=== PATIENT | male | born 1940 | race Caucasian/White ===

== ENCOUNTER 2018-02-28 10:22 | Emergency (ER) | payer MEDICARE, OTHER ==
[2018-02-28] MEDS ORDERED: Sodium Chloride 0.9% 1,000 ML IV SCH (12:30)
[2018-02-28 12:57] VITALS: BP 116/56
--- NOTE | 2018-02-28 13:15 | CT ---
INDICATION: Syncope. CT HEAD WITHOUT CONTRAST: Serial contiguous 2.5 and 5-mm sections were obtained through the brain without contrast 02/28/2018, and compared with 2009. Total Exam DLP = 950.31 mGy-cm. No shift of midline structures was identified. The ventricles are more prominent than on the previous study, compatible with central atrophy. Cortical sulci are more prominent, compatible with progressive cortical atrophy of mild degree. Very minimal low-density abnormality is noted in the white matter suggesting minimal microvascular disease, slightly more prominent than on the previous study or stable. Calcifications are noted in the vertebral and internal carotid arteries. A small retention cyst is noted in the right maxillary antrum. Thickening of the lining of the base of the right frontal air cell is again noted, but is not seen at the left frontal air cell. Mastoid air cells were well aerated. No cranial abnormality was seen. IMPRESSION: 1. No acute intracranial abnormality. 2. Progressive atrophy, mostly central. 3. Cerebrovascular disease with arterial calcifications. 4. Minimal findings in the paranasal sinuses. Report was called to Dr. Briscoe at 1133 hours, 02/28/2018. [facility]Jose
--- NOTE | 2018-03-01 11:24 | CR ---
INDICATION: Syncope for 2 minutes. CHEST: AP upright portable view of the chest was obtained 02/28/2018 and compared with 11/01/2010 and 01/29/2009. The heart appears somewhat enlarged. The aorta is tortuous with calcification in the arch. Overlying EKG leads are noted. An active infiltrate or effusion was not identified. Prominence at the breast tissue suggests gynecomastia - correlate clinically. IMPRESSION: 1. No acute process. 2. ASHD. 3. Probable gynecomastia. MTDD
--- NOTE | 2018-03-01 15:29 | ER ---
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 The patient presents today because he had symptoms onset of gassiness, felt like he was going to pass out. Hemoccult is negative. PAST SURGERY HISTORY: Appendectomy in 2014, hernia repair, TURP, ablation in 2012, antecedent 3 defibrillations 15 years ago, had numbness of his hand, and he was told he had TIA, and wears a hearing aid. REVIEW OF SYSTEMS: HEENT: Negative. Decreased hearing. Wears glasses. CARDIORESPIRATORY: As noted above. He has atrial fibrillation, has not experienced episodes of tachycardia. He has had previous ablation. GI: No history of bleeding (apixaban can cause increased frequency of bleeding compared to the other Xa inhibitors). He has had bloating that has been going on for a long time, for 5 to 10 years, has been taking Rolaids at least 6 to 10 a night, and it does not seem to make much difference. No previous history of EGD. He has had colonoscopy and has had polyps removed on one occasion of the 3 colonoscopies. Last colonoscopy was approximately 10 years ago. He noted, 2 days ago, he had more gastrointestinal upset. In general, he felt if he could get rid of this gastrointestinal upset, he would feel a lot better and would like to go home. : Negative. MUSCULOSKELETAL: Negative. NEUROLOGIC: Negative, except for noted possible TIA 10 years ago. PHYSICAL EXAMINATION: VITAL SIGNS: Blood pressure 104/51. Repeat blood pressure on multiple occasions 90/70 and 97/60. Other blood pressures; 116/56, 108/56, and 105/53. HEENT: Wearing glasses. Slightly decreased hearing. TMs negative. Pharynx without abnormality. Gag in place. NECK: Appropriate. No bruits. No masses. No thyromegaly. HEART: S1, S2. Regular rate and rhythm, 60s. No murmur. No S3. LUNGS: Clear without rales, rhonchi, or wheezes. Chest wall nontender to palpation. ABDOMEN: Soft. Moderate discomfort in mid epigastrium. Mild distention. Bowel sounds present. Mild tympany. No CVA percussion tenderness. Hemoccult performed, which was negative. Rectal exam negative. Prostate not enlarged (previous TURP). No black stools. MUSCULOSKELETAL: Lower extremities without edema. Deep tendon reflexes hypoactive, but present in upper and lower extremities. NEURO: Cranial nerves 2 through 12 intact. Good muscle strength against gravity, 4/5 muscle strength. Gait appropriate. Romberg negative. No dysmetria. No pronator drift. WORKING DIAGNOSES: Rule out acid peptic disease - ulcer, duodenitis, gastrointestinal bleed, central nervous system event, or cardiovascular event. DIAGNOSES: 1. CAT scan of the head, moderate small-vessel disease and cortex atrophy. No evidence for central nervous system bleed or mass or shift. 2. Status post old myocardial infarction, inferior and anterior Q-waves with left anterior hemiblock, atrial fibrillation, controlled. Also repeat EKG demonstrated few premature ventricular contractions. 3. Ablation for atrial fibrillation with previous defibrillations x3. 4. Hypotension. The patient's blood pressures run in the 90s. He felt better after he had a liter of fluids, to 114s. Normally, his blood pressure is 160s/70s and 80s. 5. The patient is taking apixaban. Apixaban is noted to have increased frequency in gastrointestinal bleed. No evidence for gastrointestinal bleed at present. 6. Previous history of transient ischemic attack. 7. Other surgery, appendectomy, hernia repair, herniorrhaphy, TURP, ablation, colonoscopy. No EGDs. PLAN: Discussed the patient's status with the staff at [facility] and Dr. Starks. The patient will be transferred for further evaluation because his pressures are much lower than they usually are. He may need a tilt-table test. The patient had mild orthostatic changes of 104/54 supine, sitting up 96/54, heart rate was 64 supine and 68 sitting. OTHER DIAGNOSES: 1. Presbycusis. 2. Atrial fibrillation. 3. Old anterior inferior myocardial infarction with left anterior hemiblock. Current EKG, mild. /[id number] LS/MODL ADDENDUM: TIME SEEN: The patient was seen at 1030 hours. LABORATORY DATA: Hemoglobin normal at 15, white count 5,300, mild left shift, neutrophilia 90%, lymphocytes 7, and monocytes 3. INR is trace elevated. D-dimer is normal at 137. Complete metabolic panel negative. Sodium 136, potassium 4.1, chloride low at 99, BUN 23, creatinine 1.0, BUN/creatinine ratio 23. The latter may suggest mild under-hydration. Glucose 118. Troponin less than 0.017. Urinalysis few bacteria, otherwise negative with for 4 urobilinogen and moderate occult blood. Hemoccult is negative. EKG has noted old Q-waves in anteroseptal forces and inferiorly in leads II, III, and aVF. Repeat EKG demonstrated occasional PVCs, along with the previously noted. /[id number] LS/MODL
== END 2018-02-28 13:30 ==
LOC: FB.ED 10:22
DX: I48.91 Unspecified atrial fibrillation (principal); I25.2 Old myocardial infarction; I95.9 Hypotension, unspecified; H91.10 Presbycusis, unspecified ear; Z86.73 Personal history of transient ischemic attack (TIA), and cerebral infarction without residual deficits
CPT/HCPCS: 36415; 70450; 71045; 80053; 81001; 82270; 84484; 85025; 85379; 85610; 93005; 96360; 96361; 99285; J7040

== ENCOUNTER 2018-05-03 06:34 | Day surgery (SDC) | payer MEDICARE, OTHER ==
[2018-05-03] MEDS ORDERED: Lactated Ringers 1,000 ML IV SCH (06:45)
[2018-05-03] MEDS ORDERED: Propofol 200 MG/20 ML SDV IV ONE (08:00)
--- NOTE | 2018-05-03 08:28 | PCM.OPNOTE ---
- General Post-Op/Procedure Note Date of Surgery/Procedure: 05/03/18 Operative Procedure(s): c scope with cold loop biopsy Findings: ascending colon polyp diverticulosis Pre Op Diagnosis: hx of colon polyps. + cologuard Post-Op Diagnosis: ascending colon polyp. diverticulosis Anesthesia Technique: LEONEL Primary Surgeon: Miguelangel Chen Anesthesia Provider: Scott Rowe Pathology: ascending colon polyp Complications: None Condition: Good Free Text/Narrative:: see dictation
--- NOTE | 2018-05-03 09:06 | OR ---
DATE OF OPERATION: 05/03/2018 SURGEON: Miguelangel Chen MD PROCEDURES PERFORMED: Colonoscopy with cold loop snare biopsy. PREOPERATIVE DIAGNOSIS: History of colon polyps and positive Cologuard test. POSTOPERATIVE DIAGNOSES: Polyp of ascending colon and diverticulosis of the descending and sigmoid colons. INDICATIONS FOR PROCEDURE: This is a 77-year-old white male, completely asymptomatic, who is referred with the above-mentioned history. He was offered and accepted colonoscopy. DESCRIPTION OF PROCEDURE: After an excellent IV sedation was administered, digital rectal exam was performed. No marked abnormality was noted. Flexible colonoscope was inserted and advanced to the cecum without difficulty. The prep was excellent. The following findings were noted. Ascending colon, a small polypoid lesion, biopsied with the cold loop and retrieved. Transverse colon was unremarkable. Descending colon, moderate diverticulosis. Sigmoid, moderate diverticulosis. Rectum and anus, unremarkable. The colon was deflated. The scope was removed. The patient tolerated the procedure well and was taken to Recovery. Results by letter. /[id number] /NAM
[2018-05-03 09:53] VITALS: BP 109/60
== END 2018-05-03 09:26 | disposition home or self-care (01) ==
LOC: FB.SDS 06:34
PROVIDERS: ATTEND Surgery
PROC: 0DBK8ZX Excision of Ascending Colon, Via Natural or Artificial Opening Endoscopic, Diagnostic (ICD-10-PCS; principal; 2018-05-03)
DX: Z12.11 Encounter for screening for malignant neoplasm of colon (principal); K63.5 Polyp of colon; K57.30 Diverticulosis of large intestine without perforation or abscess without bleeding; Z86.010 Personal history of colon polyps; Z79.01 Long term (current) use of anticoagulants; Z79.82 Long term (current) use of aspirin; Z79.899 Other long term (current) drug therapy; I10 Essential (primary) hypertension; E78.2 Mixed hyperlipidemia; K21.9 Gastro-esophageal reflux disease without esophagitis; I48.2 Chronic atrial fibrillation
CPT/HCPCS: 00812; 45380; 88305; J2704; J7120

== ENCOUNTER 2019-10-14 18:18 | Emergency (ER) | payer MEDICARE, OTHER ==
[2019-10-14] MEDS: Sodium Chloride 0.9% 10 ML Syringe FLUSH PRN (19:01)
[2019-10-14] MEDS: Ondansetron 4 MG/2 ML SDV IVPUSH ONE (19:02)
[2019-10-14] MEDS: hydrALAZINE 20 MG/ML SDV IVPUSH ONE (19:02)
[2019-10-14] MEDS: Alum Hydroxide/Mag Hydroxide 15 ML, Lidocaine 2% 15 ML PO ONE ×2 (19:33)
--- NOTE | 2019-10-14 19:39 | EDM.PDOC ---
ED HPI GENERAL MEDICAL PROBLEM - General Chief Complaint: Abdominal Pain Stated Complaint: NOT FEELING WELL Time Seen by Provider: 10/14/19 18:25 Source of Information: Reports: Patient History Limitations: Reports: No Limitations - History of Present Illness INITIAL COMMENTS - FREE TEXT/NARRATIVE: Patient presented to the Ed because of not feeling well. She has epigastric pain and nausea. she denies having any chest pain,headache,dyspnea. While being triaged, her BP was noted be more than 185/109 abdomen Pain Score (Numeric/FACES): 7 - Related Data Allergies Allergy/AdvReac Type Severity Reaction Status Date / Time No Known Allergies Allergy Verified 10/14/19 22:09 Home Meds: Home Meds RX: Omeprazole 40 mg PO DAILY 05/14/15 [History] RX: Simvastatin 20 mg PO 1800 05/14/15 [History] RX: Apixaban [Eliquis] 5 mg PO BID 07/06/16 [History] RX: Calcium Carbonate [Calcium] 600 mg PO BIDMEALS 07/06/16 [History] RX: Cholecalciferol (Vitamin D3) [Vitamin D3] 1,000 units PO DAILY 07/06/16 [ History] RX: Multivitamin with Minerals [Multiple Vitamin] 1 tab PO DAILY 07/06/16 [ History] RX: [place]-3/DHA/Epa/Fish Oil [Fish Oil Dr 500 mg Softgel] 1,000 mg PO DAILY [History] RX: Trandolapril [Mavik] 2 mg PO DAILY 07/06/16 [History] RX: Acetaminophen/HYDROcodone [[place] 325-5 MG] 1 - 2 tab PO Q6H PRN #30 tab [Rx] RX: Aspirin [Adult Low Dose Aspirin EC] 81 mg PO DAILY 02/28/18 [History] RX: Metoprolol Succinate [Toprol XL 50mg] 50 mg PO DAILY 02/28/18 [History] RX: Simethicone 80 mg PO QID 05/02/18 [History] Past Medical History HEENT History: Reports: Hard of Hearing, Sinusitis Cardiovascular History: Reports: Afib, High Cholesterol, Hypertension, Other ( See Below) Other Cardiovascular History: CARDIOVERSION Respiratory History: Reports: None Gastrointestinal History: Reports: Colon Polyp, Diverticulosis, GERD Genitourinary History: Reports: None Musculoskeletal History: Reports: Back Pain, Chronic, Osteoarthritis, Other ( See Below) Other Musculoskeletal History: DEGENERATIVE DISC DISEASE, QUADRICEPS WEAKNESS, SCAPHOLUNATE ADVANCED COLLAPES OF RIGHT WRIST Neurological History: Reports: TIA Psychiatric History: Reports: None Endocrine/Metabolic History: Reports: Obesity/BMI 30+ Hematologic History: Reports: None Immunologic History: Reports: None Oncologic (Cancer) History: Reports: None Dermatologic History: Reports: Other (See Below) Other Dermatologic History: TINEA PEDIS - Infectious Disease History Infectious Disease History: Reports: Mumps, Shingles - Past Surgical History Head Surgeries/Procedures: Reports: None HEENT Surgical History: Reports: Oral Surgery Cardiovascular Surgical History: Reports: Cardiac Ablation Respiratory Surgical History: Reports: None GI Surgical History: Reports: Appendectomy, Colonoscopy Male Surgical History: Reports: Other (See Below) Other Male Surgeries/Procedures: UROSTOMY Endocrine Surgical History: Reports: None Neurological Surgical History: Reports: None Musculoskeletal Surgical History: Reports: Other (See Below) Other Musculoskeletal Surgeries/Procedures:: RIGHT WRIST FUSION Oncologic Surgical History: Reports: None Dermatological Surgical History: Reports: None Social & Family History - Family History Family Medical History: Noncontributory - Tobacco Use Smoking Status *Q: Never Smoker - Caffeine Use Caffeine Use: Reports: None - Recreational Drug Use Recreational Drug Use: No ED ROS GENERAL - Review of Systems Review Of Systems: See Below Constitutional: Reports: No Symptoms HEENT: Reports: No Symptoms Respiratory: Reports: No Symptoms Cardiovascular: Reports: No Symptoms Endocrine: Reports: No Symptoms GI/Abdominal: Reports: No Symptoms : Reports: No Symptoms Musculoskeletal: Reports: No Symptoms Skin: Reports: No Symptoms Neurological: Reports: No Symptoms Psychiatric: Reports: No Symptoms Hematologic/Lymphatic: Reports: No Symptoms ED EXAM, GENERAL - Physical Exam Exam: See Below Exam Limited By: No Limitations General Appearance: Alert, WD/WN, No Apparent Distress Eye Exam: Bilateral Eye: PERRL Ears: Normal External Exam, Normal Canal Nose: Normal Inspection, Normal Mucosa, No Blood Throat/Mouth: Normal Inspection, Normal Lips, Normal Teeth Head: Atraumatic, Normocephalic Neck: Normal Inspection, Supple, Non-Tender, Full Range of Motion Respiratory/Chest: No Respiratory Distress, Lungs Clear, Normal Breath Sounds, No Accessory Muscle Use, Chest Non-Tender Cardiovascular: Normal Peripheral Pulses, Regular Rate, Rhythm, No Edema, No Gallop, No JVD, No Murmur Back Exam: Normal Inspection, Full Range of Motion Extremities: Normal Inspection, Normal Range of Motion, Non-Tender, No Pedal Edema, Normal Capillary Refill Neurological: Alert, Oriented, CN II-XII Intact, Normal Cognition, Normal Gait, Normal Reflexes, No Motor/Sensory Deficits Skin Exam: Warm, Dry Course - Vital Signs Text/Narrative:: Labs reviewed and discussed with patient EKG-NSR trop-neg Hydralazine 20 mg IV x1 zofran 4mg IV x1 GI cocktail Her nausea and BP did improved significantly and her Bp upon discharge was 137/ 69 Last Recorded V/S: Last Vital Signs Temp 36.7 C 10/14/19 19:36 Pulse 71 10/14/19 19:36 Resp 16 10/14/19 19:36 BP 137/71 10/14/19 19:36 Pulse Ox 94 L 10/14/19 19:36 - Orders/Labs/Meds Orders: Active Orders 24 hr Category Date Time Status EKG Documentation Completion [RC] ASDIRECTED Care 10/14/19 18:41 Active Saline Lock Insert [OM.PC] Routine Oth 10/14/19 18:40 Ordered EKG 12 Lead [EK] Routine Ther 10/14/19 18:40 Ordered Labs: Laboratory Tests 10/14/19 10/14/19 10/14/19 Range/Units 18:55 18:55 18:55 WBC 5.6 (4.5-12.0) X10-3/uL RBC 4.49 (4.30-5.75) x10(6)uL Hgb 14.2 (13.5-17.8) g/dL Hct 43.2 (30.0-51.3) % MCV 96.1 H (80-96) fL MCH 31.7 (27.7-33.6) pg MCHC 33.0 (32.2-35.4) g/dL RDW 13.5 (11.5-15.5) % Plt Count 162 (125-369) X10(3)uL MPV 7.0 L (7.4-10.4) fL Neut % (Auto) 62.3 (46-82) % Lymph % (Auto) 24.6 (13-37) % [place] % (Auto) 9.4 (4-12) % Eos % (Auto) 3 (1.0-5.0) % Baso % (Auto) 1 (0-2) % Neut # (Auto) 3.5 (1.6-8.3) # Lymph # (Auto) 1.4 (0.6-5.0) # [place] # (Auto) 0.5 (0.0-1.3) # Eos # (Auto) 0.2 (0.0-0.8) # Baso # (Auto) 0.0 (0.0-0.2) # Sodium 135 (135-145) mmol/L Potassium 4.4 (3.5-5.3) mmol/L Chloride 101 (100-110) mmol/L Carbon Dioxide 27 (21-32) mmol/L BUN 21 H (7-18) mg/dL Creatinine 1.1 (0.70-1.30) mg/dL Est Cr Clr Drug Dosing 58.79 mL/min Estimated GFR (MDRD) > 60 (>60) BUN/Creatinine Ratio 19.1 (9-20) Glucose 101 (80-116) mg/dL Calcium 9.3 (8.6-10.2) mg/dL Troponin I < 0.017 L (<0.017-0.056) ng/mL Meds: Medications Discontinued Medications Generic Name Dose Route Start Last Admin Trade Name Freq PRN Reason Stop Dose Admin Al Hydroxide/Mg Hydroxide 15 0 ml 10/14/19 19:28 10/14/19 19:33 ml/ Lidocaine HCl 15 ml PO 10/14/19 19:29 30 ml ONETIME ONE Administration Hydralazine HCl 20 mg 10/14/19 18:42 10/14/19 19:02 Apresoline IVPUSH 10/14/19 18:43 20 mg ONETIME ONE Administration Ondansetron HCl 4 mg 10/14/19 18:42 10/14/19 19:02 Zofran IVPUSH 10/14/19 18:43 4 mg ONETIME ONE Administration Sodium Chloride 10 ml 10/14/19 18:40 10/14/19 19:01 Saline Flush FLUSH 10 ml ASDIRECTED PRN Administration Keep Vein Open Departure - Departure Time of Disposition: 20:00 Disposition: Home, Self-Care 01 Condition: Good Clinical Impression: Hypertensive crisis, GERD (gastroesophageal reflux disease) - Discharge Information Instructions: Heartburn, [id number], Hypertension, [id number] Referrals: PCP,None [Primary Care Provider] - Forms: ED Department Discharge Additional Instructions: please read discharge instructions on hypertensive crisis continue your medicines for high blood pressure low salt/low fat diet Follow up with tour doctor this week - My Orders Last 24 Hours: My Active Orders 10/14/19 18:40 Saline Lock Insert [OM.PC] Routine EKG 12 Lead [EK] Routine 10/14/19 18:41 EKG Documentation Completion [RC] ASDIRECTED - Assessment/Plan Last 24 Hours: My Active Orders 10/14/19 18:40 Saline Lock Insert [OM.PC] Routine EKG 12 Lead [EK] Routine 10/14/19 18:41 EKG Documentation Completion [RC] ASDIRECTED
[2019-10-14 20:41] VITALS: BP 137/71; PULSE 71
== END 2019-10-14 19:57 | disposition home or self-care (01) ==
LOC: FB.ED 18:18
DX: I16.0 Hypertensive urgency (principal); I48.91 Unspecified atrial fibrillation; E66.9 Obesity, unspecified; E78.00 Pure hypercholesterolemia, unspecified; K21.9 Gastro-esophageal reflux disease without esophagitis; Z86.73 Personal history of transient ischemic attack (TIA), and cerebral infarction without residual deficits; Z79.82 Long term (current) use of aspirin; Z68.29 Body mass index [BMI] 29.0-29.9, adult; Z79.899 Other long term (current) drug therapy; Z79.01 Long term (current) use of anticoagulants
CPT/HCPCS: 36415; 80048; 84484; 85025; 93005; 96374; 96375; 99284; A9270; J0360; J2405

== ENCOUNTER 2019-10-14 21:48 | Emergency (ER) | payer MEDICARE, OTHER ==
[2019-10-14] MEDS ORDERED: Meclizine 25 MG Tab PO ONE (21:59)
[2019-10-14] MEDS ORDERED: LORazepam 2 MG/ML SDV IVPUSH ONE (21:59)
[2019-10-14] MEDS ORDERED: Metoclopramide 10 MG Tab PO ONE (22:46)
[2019-10-14] MEDS ORDERED: Alum Hydroxide/Mag Hydroxide 30 ML, Lidocaine 2% 30 ML PO ONE ×2 (22:47)
[2019-10-14] MEDS ORDERED: Simethicone Drops 40 MG/0.6 ML 30 ML Bottle PO ONE (23:13)
--- NOTE | 2019-10-14 23:21 | EDM.PDOC ---
ED HPI GENERAL MEDICAL PROBLEM - General Chief Complaint: General Stated Complaint: SICK Time Seen by Provider: 10/14/19 21:55 Source of Information: Reports: Patient History Limitations: Reports: No Limitations - History of Present Illness INITIAL COMMENTS - FREE TEXT/NARRATIVE: Patient presented to the ED because of persistent burping and now have nausea and headache. He presented with the same problem earlier today and was given hydralazine 20 mg IV because he was found to be hypertensive , GI cocktail and Zofran 4 mg IV, felt better and discharge to home however his burping recurred again with associated nausea and dizziness. - Related Data Allergies Allergy/AdvReac Type Severity Reaction Status Date / Time No Known Allergies Allergy Verified 10/14/19 22:09 Home Meds: Home Meds Omeprazole 40 mg PO DAILY 05/14/15 [History] Simvastatin 20 mg PO 1800 05/14/15 [History] Apixaban [Eliquis] 5 mg PO BID 07/06/16 [History] Calcium Carbonate [Calcium] 600 mg PO BIDMEALS 07/06/16 [History] Cholecalciferol (Vitamin D3) [Vitamin D3] 1,000 units PO DAILY 07/06/16 [History ] Multivitamin with Minerals [Multiple Vitamin] 1 tab PO DAILY 07/06/16 [History] [place]-3/DHA/Epa/Fish Oil [Fish Oil Dr 500 mg Softgel] 1,000 mg PO DAILY [History] Trandolapril [Mavik] 2 mg PO DAILY 07/06/16 [History] Acetaminophen/HYDROcodone [[place] 325-5 MG] 1 - 2 tab PO Q6H PRN #30 tab [Rx] Aspirin [Adult Low Dose Aspirin EC] 81 mg PO DAILY 02/28/18 [History] Metoprolol Succinate [Toprol XL 50mg] 50 mg PO DAILY 02/28/18 [History] Simethicone 80 mg PO QID 05/02/18 [History] Past Medical History HEENT History: Reports: Hard of Hearing, Sinusitis Cardiovascular History: Reports: Afib, High Cholesterol, Hypertension, Other ( See Below) Other Cardiovascular History: CARDIOVERSION Respiratory History: Reports: None Gastrointestinal History: Reports: Colon Polyp, Diverticulosis, GERD Genitourinary History: Reports: None Musculoskeletal History: Reports: Back Pain, Chronic, Osteoarthritis, Other ( See Below) Other Musculoskeletal History: DEGENERATIVE DISC DISEASE, QUADRICEPS WEAKNESS, SCAPHOLUNATE ADVANCED COLLAPES OF RIGHT WRIST Neurological History: Reports: TIA Psychiatric History: Reports: None Endocrine/Metabolic History: Reports: Obesity/BMI 30+ Hematologic History: Reports: None Immunologic History: Reports: None Oncologic (Cancer) History: Reports: None Dermatologic History: Reports: Other (See Below) Other Dermatologic History: TINEA PEDIS - Infectious Disease History Infectious Disease History: Reports: Mumps, Shingles - Past Surgical History Head Surgeries/Procedures: Reports: None HEENT Surgical History: Reports: Oral Surgery Cardiovascular Surgical History: Reports: Cardiac Ablation Respiratory Surgical History: Reports: None GI Surgical History: Reports: Appendectomy, Colonoscopy Male Surgical History: Reports: Other (See Below) Other Male Surgeries/Procedures: UROSTOMY Endocrine Surgical History: Reports: None Neurological Surgical History: Reports: None Musculoskeletal Surgical History: Reports: Other (See Below) Other Musculoskeletal Surgeries/Procedures:: RIGHT WRIST FUSION Oncologic Surgical History: Reports: None Dermatological Surgical History: Reports: None Social & Family History - Family History Family Medical History: Noncontributory - Tobacco Use Smoking Status *Q: Never Smoker - Caffeine Use Caffeine Use: Reports: None - Recreational Drug Use Recreational Drug Use: No ED ROS GENERAL - Review of Systems Review Of Systems: See Below Constitutional: Reports: No Symptoms HEENT: Reports: No Symptoms Respiratory: Reports: No Symptoms Cardiovascular: Reports: No Symptoms Endocrine: Reports: No Symptoms GI/Abdominal: Reports: Nausea : Reports: No Symptoms Musculoskeletal: Reports: No Symptoms Skin: Reports: No Symptoms Neurological: Reports: No Symptoms Psychiatric: Reports: No Symptoms Hematologic/Lymphatic: Reports: No Symptoms ED EXAM, GENERAL - Physical Exam Exam: See Below Exam Limited By: No Limitations General Appearance: Alert, WD/WN, No Apparent Distress Eye Exam: Bilateral Eye: PERRL Nose: Normal Inspection, Normal Mucosa, No Blood Throat/Mouth: Normal Inspection, Normal Lips, Normal Teeth Head: Atraumatic, Normocephalic Neck: Normal Inspection, Supple, Non-Tender, Full Range of Motion Respiratory/Chest: No Respiratory Distress, Lungs Clear, Normal Breath Sounds, No Accessory Muscle Use, Chest Non-Tender Cardiovascular: Normal Peripheral Pulses, Regular Rate, Rhythm, No Edema, No Gallop, No JVD, No Murmur GI/Abdominal: Normal Bowel Sounds, Soft, Non-Tender, No Organomegaly, No Distention, No Abnormal Bruit Extremities: Normal Inspection, Normal Range of Motion, Non-Tender, No Pedal Edema, Normal Capillary Refill Neurological: Alert, Oriented, CN II-XII Intact, Normal Cognition, Normal Gait, Normal Reflexes, No Motor/Sensory Deficits Psychiatric: Normal Affect, Normal Mood Course - Vital Signs Text/Narrative:: ativan 1mg IM x1 reglan 10 mg po x1 GI cocktail x2 Simethicone 160 mg po x1 Patient's medication was reviewed and apparently she is supposed to be taking simethicone 80 mg 4 times daily for belching and burbing but has not been taking it for days. Last Recorded V/S: Last Vital Signs Temp 36.4 C 10/14/19 21:50 Pulse 58 L 10/14/19 23:23 Resp 16 10/14/19 23:23 BP 151/65 H 10/14/19 23:23 Pulse Ox 94 L 10/14/19 23:23 - Orders/Labs/Meds Meds: Medications Discontinued Medications Generic Name Dose Route Start Last Admin Trade Name Freq PRN Reason Stop Dose Admin Al Hydroxide/Mg Hydroxide 30 0 ml 10/14/19 22:47 10/14/19 22:55 ml/ Lidocaine HCl 30 ml PO 10/14/19 22:48 60 ml ONETIME ONE Administration Lorazepam 1 mg 10/14/19 21:59 10/14/19 22:17 Ativan IVPUSH 10/14/19 22:00 1 mg ONETIME ONE Administration Meclizine HCl 50 mg 10/14/19 21:59 10/14/19 22:18 Antivert PO 10/14/19 22:00 50 mg ONETIME ONE Administration Metoclopramide HCl 10 mg 10/14/19 22:46 10/14/19 22:56 Reglan PO 10/14/19 22:47 10 mg ONETIME ONE Administration Simethicone 160 mg 10/14/19 23:13 10/14/19 23:23 Infants' Gas Relief PO 10/14/19 23:14 Not Given ONETIME ONE Simethicone 160 mg 10/15/19 23:16 Simethicone PO 10/15/19 23:17 ONETIME ONE Simethicone 160 mg 10/14/19 23:22 10/14/19 23:27 Simethicone PO 10/14/19 23:23 160 mg ONETIME ONE Administration Departure - Departure Time of Disposition: 23:15 Disposition: Home, Self-Care 01 Condition: Good Clinical Impression: GERD (gastroesophageal reflux disease), Functional burping disorder - Discharge Information Instructions: Food Choices for Gastroesophageal Reflux Disease, Adult Referrals: PCP,None [Primary Care Provider] - Forms: ED Department Discharge Additional Instructions: please read discharge instructions on GERD and burping take your omeprazole 40 mg daily simethicone 80 mg 4 times daily follow up if symptoms persist
[2019-10-14] MEDS ORDERED: Simethicone 80 MG Tab.Chew PO ONE (23:22)
[2019-10-14 23:26] VITALS: BP 151/65
[2019-10-14 23:28] VITALS: PULSE 58
[2019-10-15] MEDS ORDERED: Simethicone 80 MG Tab.Chew PO ONE (23:16)
== END 2019-10-14 23:30 | disposition home or self-care (01) ==
LOC: FB.ED 21:48
DX: K21.9 Gastro-esophageal reflux disease without esophagitis (principal); K92.89 Other specified diseases of the digestive system; I10 Essential (primary) hypertension; I48.91 Unspecified atrial fibrillation; E66.9 Obesity, unspecified; Z79.82 Long term (current) use of aspirin; Z79.899 Other long term (current) drug therapy; Z79.01 Long term (current) use of anticoagulants; Z68.29 Body mass index [BMI] 29.0-29.9, adult; Z86.73 Personal history of transient ischemic attack (TIA), and cerebral infarction without residual deficits
CPT/HCPCS: 96374; 99283-25; A9270-GY; J2060

== ENCOUNTER 2021-03-12 07:40 | Emergency (ER) | payer MEDICARE, OTHER ==
--- NOTE | 2021-03-12 08:29 | EDM.PDOC ---
ED HPI GENERAL MEDICAL PROBLEM - General Chief Complaint: Chest Pain Stated Complaint: chest pain Time Seen by Provider: 03/12/21 07:45 Source of Information: Reports: Patient History Limitations: Reports: No Limitations - History of Present Illness INITIAL COMMENTS - FREE TEXT/NARRATIVE: c/o cp x 24h pt awoke yesterday and had 1/10 CP across his upper chest, up to 3/10 with e xertion, has persisted, there during the last night 3-4x when he got up to go to the bathroom, more pain 3/10 when walking present on awakening at 7a today, 1/10 again at rest, 3/10 with exertion, he then came to the ED, some water with his pills today, no bfast me mowed grass on a riding mower for 3h yesterday slight sob, no n/v, pain more on the R side, some tenderness on palpation the upper chest he mounted an engine on a mower 3d ago and thinks he may have pulled a muscle altho he did have pain at that time no prior h/o CT or stent per pt h/o afib x 20y, 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, last saw PCP Dr Gomez 1y ago, due for his annual exam this month EKG with afib with rate 57 altho rate dec'd to mid 40s a short while later, no change in sxs with change HR, no ST change, has wide QRS with Q in V1 and V2 and delayed RWP he doesn't know if he has had a cath in the past, he said there was a discussion re a "dilated vessel" altho did not think it was an aneurysm has had the [place] pierre [place] Chest Pain Score (Numeric/FACES): 2 - Related Data Allergies Allergy/AdvReac Type Severity Reaction Status Date / Time No Known Allergies Allergy Verified 03/12/21 10:12 Home Meds: Home Meds Omeprazole 40 mg PO DAILY 05/14/15 [History] Simvastatin 20 mg PO 1800 05/14/15 [History] Apixaban [Eliquis] 5 mg PO BID 07/06/16 [History] Calcium Carbonate [Calcium] 600 mg PO BIDMEALS 07/06/16 [History] Cholecalciferol (Vitamin D3) [Vitamin D3] 1,000 units PO DAILY 07/06/16 [History] Multivitamin with Minerals [Multiple Vitamin] 1 tab PO DAILY 07/06/16 [History] [place]-3/DHA/Epa/Fish Oil [Fish Oil Dr 500 mg Softgel] 1,000 mg PO DAILY 07/06/16 [History] trandolapriL [Mavik] 2 mg PO DAILY 07/06/16 [History] Acetaminophen/HYDROcodone [Sipsey 325-5 MG] 1 - 2 tab PO Q6H PRN #30 tab 07/07/16 [Rx] Aspirin [Adult Low Dose Aspirin EC] 81 mg PO DAILY 02/28/18 [History] Metoprolol Succinate [Toprol XL 50mg] 50 mg PO DAILY 02/28/18 [History] Simethicone 80 mg PO QID 05/02/18 [History] Past Medical History HEENT History: Reports: Hard of Hearing, Sinusitis Cardiovascular History: Reports: Afib, High Cholesterol, Hypertension, Other (See Below) Other Cardiovascular History: CARDIOVERSION Respiratory History: Reports: None Gastrointestinal History: Reports: Colon Polyp, Diverticulosis, GERD Genitourinary History: Reports: None Musculoskeletal History: Reports: Back Pain, Chronic, Osteoarthritis, Other (See Below) Other Musculoskeletal History: DEGENERATIVE DISC DISEASE, QUADRICEPS WEAKNESS, SCAPHOLUNATE ADVANCED COLLAPES OF RIGHT WRIST Neurological History: Reports: TIA Psychiatric History: Reports: None Endocrine/Metabolic History: Reports: Obesity/BMI 30+ Hematologic History: Reports: None Immunologic History: Reports: None Oncologic (Cancer) History: Reports: None Dermatologic History: Reports: Other (See Below) Other Dermatologic History: TINEA PEDIS - Infectious Disease History Infectious Disease History: Reports: Mumps, Shingles - Past Surgical History Head Surgeries/Procedures: Reports: None HEENT Surgical History: Reports: Oral Surgery Cardiovascular Surgical History: Reports: Cardiac Ablation Respiratory Surgical History: Reports: None GI Surgical History: Reports: Appendectomy, Colonoscopy Male Surgical History: Reports: Other (See Below) Other Male Surgeries/Procedures: UROSTOMY Endocrine Surgical History: Reports: None Neurological Surgical History: Reports: None Musculoskeletal Surgical History: Reports: Other (See Below) Other Musculoskeletal Surgeries/Procedures:: RIGHT WRIST FUSION Oncologic Surgical History: Reports: None Dermatological Surgical History: Reports: None Social & Family History - Family History Family Medical History: No Pertinent Family History - Caffeine Use Caffeine Use: Reports: None ED ROS GENERAL - Review of Systems Review Of Systems: See Below Constitutional: Reports: No Symptoms HEENT: Reports: No Symptoms Respiratory: Reports: No Symptoms, Shortness of Breath Cardiovascular: Reports: Chest Pain Endocrine: Reports: No Symptoms GI/Abdominal: Reports: No Symptoms : Reports: No Symptoms Musculoskeletal: Reports: No Symptoms Skin: Reports: No Symptoms Neurological: Reports: No Symptoms Psychiatric: Reports: No Symptoms Hematologic/Lymphatic: Reports: No Symptoms Immunologic: Reports: No Symptoms ED EXAM, GENERAL - Physical Exam Exam: See Below Exam Limited By: No Limitations General Appearance: Alert, WD/WN, No Apparent Distress Ears: Hearing Loss Nose: Normal Inspection Throat/Mouth: Normal Voice, No Airway Compromise Head: Atraumatic, Normocephalic Neck: Normal Inspection, Supple, Non-Tender, Full Range of Motion. No: Lymphadenopathy (R), Lymphadenopathy (L) Respiratory/Chest: No Respiratory Distress, Lungs Clear, Normal Breath Sounds, No Accessory Muscle Use, Other (mild tender in upper chest on R at MCL and L at MCl) Cardiovascular: Other (irreg, no S3/S4, 2/6 FABIO heard diffusely, no patton murmur, slight heave felt in L axilla with auscultation altho PMI not palpable) GI/Abdominal: Normal Bowel Sounds, Soft, Non-Tender, No Distention Back Exam: Normal Inspection, Full Range of Motion Extremities: Normal Inspection, Normal Range of Motion, Non-Tender, Other (1+ pretib edema to knees b/l, turgor UEs wnl) Neurological: Alert, Oriented, CN II-XII Intact, Normal Cognition, No Motor/Sensory Deficits Psychiatric: Normal Affect, Normal Mood Skin Exam: Warm, Dry, Intact, Normal Color, No Rash Lymphatic: No Adenopathy Course - Vital Signs Last Recorded V/S: Last Vital Signs Temp 36.4 C 03/12/21 08:08 Pulse 56 L 03/12/21 08:08 Resp 18 03/12/21 08:08 BP 148/70 H 03/12/21 08:35 Pulse Ox 100 03/12/21 08:08 - Orders/Labs/Meds Orders: Active Orders 24 hr Category Date Time Status EKG Documentation Completion [RC] ASDIRECTED Care 03/12/21 08:21 Active Ang Chest [CT] Stat Exams 03/12/21 08:22 Taken Iopamidol [Isovue-370 (76%)] Med 03/12/21 09:00 Active 100 ml IV . DIRECTED EKG 12 Lead [EK] Routine Ther 03/12/21 08:20 Ordered Medication Orders Iopamidol (Iopamidol 755 Mg/Ml 100 Ml Bottle) 100 ml IV . DIRECTED ROBY Last Admin: 03/12/21 09:01 Dose: 100 ml Documented by: [id number] Labs: Laboratory Tests 03/12/21 03/12/21 03/12/21 Range/Units 08:35 08:40 08:40 WBC 6.2 (3.2-10.1) x10-3/uL RBC 4.49 (3.90-5.90) x10(6)uL Hgb 14.5 (12.9-17.7) g/dL Hct 44.0 (38.3-50.1) % MCV 98.0 (80.8-98.7) fL MCH 32.3 (27.0-33.3) pg MCHC 33.0 (28.7-35.3) g/dL RDW 14.6 (12.4-15.0) % Plt Count 147 (117-477) x10(3)uL MPV 7.9 (6.7-11.0) fL Neut % (Auto) 64.3 (40.3-71.8) % Lymph % (Auto) 22.4 (15.8-45.3) % Dixie % (Auto) 10.4 (5.5-15.2) % Eos % (Auto) 2.1 (0.1-6.8) % Baso % (Auto) 0.8 (0.3-3.8) % Neut # (Auto) 4.0 (1.7-6.9) x10-3/uL Lymph # (Auto) 1.4 (0.5-4.5) x10-3/uL Dixie # (Auto) 0.6 (0.0-1.2) x10-3/uL Eos # (Auto) 0.1 (0.0-0.6) x10-3/uL Baso # (Auto) 0.1 (0.0-0.3) x10-3/uL PT 11.3 H (9.0-11.1) sec INR 1.05 (1.00-1.24) D-Dimer, Quantitative 0.54 (0.0-0.59) mg/LFEU Sodium (135-145) mmol/L Potassium (3.5-5.3) mmol/L Chloride (100-110) mmol/L Carbon Dioxide (21-32) mmol/L BUN (7-18) mg/dL Creatinine (0.70-1.30) mg/dL Est Cr Clr Drug Dosing Estimated GFR (MDRD) (>60) BUN/Creatinine Ratio (9-20) Glucose (80-116) mg/dL Calcium (8.6-10.2) mg/dL Magnesium (1.8-2.5) mg/dL Total Bilirubin (0.1-1.3) mg/dL AST (5-25) IU/L ALT (12-36) U/L Alkaline Phosphatase (56-112) IU/L Troponin I (4.0-60.3) pg/mL C-Reactive Protein (0.5-0.9) mg/dL NT-Pro-B Natriuret Pep (<=450) pg/mL Total Protein (6.0-8.0) g/dL Albumin (3.2-4.6) g/dL Globulin g/dL Albumin/Globulin Ratio Urine Color Yellow (YELLOW) Urine Appearance Clear (CLEAR) Urine pH 7.0 H (5.0-6.5) Ur Specific Dawn 1.010 (1.010-1.025) Urine Protein Negative (NEGATIVE) mg/dL Urine Glucose (UA) Normal (NORMAL) mg/dL Urine Ketones Negative (NEGATIVE) mg/dL Urine Occult Blood Moderate H (NEGATIVE) Urine Nitrite Negative (NEGATIVE) Urine Bilirubin Negative (NEGATIVE) Urine Urobilinogen Normal (NEGATIVE) mg/dL Ur Leukocyte Esterase Negative (NEGATIVE) Urine RBC 0-5 (0-5) Urine WBC 0-5 (0-5) Ur Epithelial Cells Occasional Urine Bacteria Few H (NS) SARS-CoV-2 RNA (DOROTHEA) (NEGATIVE) 03/12/21 03/12/21 03/12/21 Range/Units 08:40 08:40 08:40 WBC (3.2-10.1) x10-3/uL RBC (3.90-5.90) x10(6)uL Hgb (12.9-17.7) g/dL Hct (38.3-50.1) % MCV (80.8-98.7) fL MCH (27.0-33.3) pg MCHC (28.7-35.3) g/dL RDW (12.4-15.0) % Plt Count (117-477) x10(3)uL MPV (6.7-11.0) fL Neut % (Auto) (40.3-71.8) % Lymph % (Auto) (15.8-45.3) % Dixie % (Auto) (5.5-15.2) % Eos % (Auto) (0.1-6.8) % Baso % (Auto) (0.3-3.8) % Neut # (Auto) (1.7-6.9) x10-3/uL Lymph # (Auto) (0.5-4.5) x10-3/uL Dixie # (Auto) (0.0-1.2) x10-3/uL Eos # (Auto) (0.0-0.6) x10-3/uL Baso # (Auto) (0.0-0.3) x10-3/uL PT (9.0-11.1) sec INR (1.00-1.24) D-Dimer, Quantitative (0.0-0.59) mg/LFEU Sodium 136 (135-145) mmol/L Potassium 4.4 (3.5-5.3) mmol/L Chloride 99 L (100-110) mmol/L Carbon Dioxide 28 (21-32) mmol/L BUN 17 (7-18) mg/dL Creatinine 1.2 (0.70-1.30) mg/dL Est Cr Clr Drug Dosing TNP Estimated GFR (MDRD) 58 L (>60) BUN/Creatinine Ratio 14.2 (9-20) Glucose 105 (80-116) mg/dL Calcium 9.0 (8.6-10.2) mg/dL Magnesium 1.8 (1.8-2.5) mg/dL Total Bilirubin 1.0 (0.1-1.3) mg/dL AST 21 (5-25) IU/L ALT 19 D (12-36) U/L Alkaline Phosphatase 56 (56-112) IU/L Troponin I 18.8 (4.0-60.3) pg/mL C-Reactive Protein 0.2 L (0.5-0.9) mg/dL NT-Pro-B Natriuret Pep 4996 H* (<=450) pg/mL Total Protein 7.4 (6.0-8.0) g/dL Albumin 3.9 (3.2-4.6) g/dL Globulin 3.5 g/dL Albumin/Globulin Ratio 1.1 Urine Color (YELLOW) Urine Appearance (CLEAR) Urine pH (5.0-6.5) Ur Specific Dawn (1.010-1.025) Urine Protein (NEGATIVE) mg/dL Urine Glucose (UA) (NORMAL) mg/dL Urine Ketones (NEGATIVE) mg/dL Urine Occult Blood (NEGATIVE) Urine Nitrite (NEGATIVE) Urine Bilirubin (NEGATIVE) Urine Urobilinogen (NEGATIVE) mg/dL Ur Leukocyte Esterase (NEGATIVE) Urine RBC (0-5) Urine WBC (0-5) Ur Epithelial Cells Urine Bacteria (NS) SARS-CoV-2 RNA (DOROTHEA) (NEGATIVE) 03/12/21 Range/Units 09:38 WBC (3.2-10.1) x10-3/uL RBC (3.90-5.90) x10(6)uL Hgb (12.9-17.7) g/dL Hct (38.3-50.1) % MCV (80.8-98.7) fL MCH (27.0-33.3) pg MCHC (28.7-35.3) g/dL RDW (12.4-15.0) % Plt Count (117-477) x10(3)uL MPV (6.7-11.0) fL Neut % (Auto) (40.3-71.8) % Lymph % (Auto) (15.8-45.3) % Dixie % (Auto) (5.5-15.2) % Eos % (Auto) (0.1-6.8) % Baso % (Auto) (0.3-3.8) % Neut # (Auto) (1.7-6.9) x10-3/uL Lymph # (Auto) (0.5-4.5) x10-3/uL Dixie # (Auto) (0.0-1.2) x10-3/uL Eos # (Auto) (0.0-0.6) x10-3/uL Baso # (Auto) (0.0-0.3) x10-3/uL PT (9.0-11.1) sec INR (1.00-1.24) D-Dimer, Quantitative (0.0-0.59) mg/LFEU Sodium (135-145) mmol/L Potassium (3.5-5.3) mmol/L Chloride (100-110) mmol/L Carbon Dioxide (21-32) mmol/L BUN (7-18) mg/dL Creatinine (0.70-1.30) mg/dL Est Cr Clr Drug Dosing Estimated GFR (MDRD) (>60) BUN/Creatinine Ratio (9-20) Glucose (80-116) mg/dL Calcium (8.6-10.2) mg/dL Magnesium (1.8-2.5) mg/dL Total Bilirubin (0.1-1.3) mg/dL AST (5-25) IU/L ALT (12-36) U/L Alkaline Phosphatase (56-112) IU/L Troponin I (4.0-60.3) pg/mL C-Reactive Protein (0.5-0.9) mg/dL NT-Pro-B Natriuret Pep (<=450) pg/mL Total Protein (6.0-8.0) g/dL Albumin (3.2-4.6) g/dL Globulin g/dL Albumin/Globulin Ratio Urine Color (YELLOW) Urine Appearance (CLEAR) Urine pH (5.0-6.5) Ur Specific Dawn (1.010-1.025) Urine Protein (NEGATIVE) mg/dL Urine Glucose (UA) (NORMAL) mg/dL Urine Ketones (NEGATIVE) mg/dL Urine Occult Blood (NEGATIVE) Urine Nitrite (NEGATIVE) Urine Bilirubin (NEGATIVE) Urine Urobilinogen (NEGATIVE) mg/dL Ur Leukocyte Esterase (NEGATIVE) Urine RBC (0-5) Urine WBC (0-5) Ur Epithelial Cells Urine Bacteria (NS) SARS-CoV-2 RNA (DOROTHEA) Negative (NEGATIVE) Meds: Medications Generic Name Dose Route Start Last Admin Trade Name Freq PRN Reason Stop Dose Admin Iopamidol 100 ml 03/12/21 09:00 03/12/21 09:01 Iopamidol 755 Mg/Ml 100 Ml Bottle IV 100 ml . DIRECTED ROBY Administration Discontinued Medications Generic Name Dose Route Start Last Admin Trade Name Marta PRN Reason Stop Dose Admin Sodium Chloride 1,000 mls @ 500 mls/hr 03/12/21 10:03 03/12/21 10:15 Normal Saline IV 03/12/21 12:02 500 mls/hr .BOLUS ONE Administration Nitroglycerin 0.4 mg 03/12/21 08:33 03/12/21 08:35 Nitroglycerin 0.4 Mg Tab.Sl SL 03/12/21 08:34 0.4 mg ONETIME ONE Administration - Re-Assessments/Exams Free Text/Narrative Re-Assessment/Exam: 03/12/21 11:54 c/w Dr Saleh, [facility] hospitalist, who accepted pt in transfer, however there will not be open beds for another 4 hours or so and nurse triage requested pt to be boarded in our ED until a bed is open pt eating lunch pt discussed earlier with Dr Gomez, who is pt's PCP and who is our hospitalist today as well. He is concerned, as I am, that pt may have unstable angina given the extertional component. BNP is nearly 5000, no comparison, altho likely an increase the 3-page CTA report was reviewed with pt, no aneurysm, 2.4 x 2.7 gastric density noted and reported to Dr Saleh 03/12/21 12:45 bed now available, pt without pain, he ate lunch Departure - Departure Time of Disposition: 12:46 Disposition: DC/Tfer to Other 70 Reason for Transfer *Q: Other Condition: Good Clinical Impression: Chest pain, Exertional angina, Elevated brain natriuretic peptide (BNP) level, Cardiomegaly, Left atrial enlargement, Gastric mass, Renal insufficiency, Bradycardia Referrals: Isaiah Gomez MD [Primary Care Provider] - Forms: ED Department Discharge Sepsis Event Note (ED) - Evaluation Sepsis Screening Result: No Definite Risk - Focused Exam Vital Signs: Vital Signs Temp Pulse Resp BP BP Pulse Ox 03/12/21 08:35 148/70 H 03/12/21 08:08 36.4 C 56 L 18 156/95 H 100 - My Orders Last 24 Hours: My Active Orders 03/12/21 08:20 EKG 12 Lead [EK] Routine 03/12/21 08:21 EKG Documentation Completion [RC] ASDIRECTED 03/12/21 08:22 Ang Chest [CT] Stat 03/12/21 09:00 Iopamidol [Isovue-370 (76%)] 100 ml IV . DIRECTED - Assessment/Plan Last 24 Hours: My Active Orders 03/12/21 08:20 EKG 12 Lead [EK] Routine 03/12/21 08:21 EKG Documentation Completion [RC] ASDIRECTED 03/12/21 08:22 Ang Chest [CT] Stat 03/12/21 09:00 Iopamidol [Isovue-370 (76%)] 100 ml IV . DIRECTED
[2021-03-12] MEDS ORDERED: Nitroglycerin 0.4 MG Tab.SL SL ONE (08:33)
[2021-03-12] MEDS ORDERED: Iopamidol 755 Mg/ML 100 ML Bottle IV SCH (09:00)
[2021-03-12] MEDS ORDERED: Sodium Chloride 0.9% 1,000 ML IV ONE (10:03)
[2021-03-12 13:23] VITALS: BP 157/70; PULSE 52
== END 2021-03-12 11:54 | disposition other institution (70) ==
LOC: FB.ED 07:40
DX: I20.9 Angina pectoris, unspecified (principal); R74.8 Abnormal levels of other serum enzymes; I51.7 Cardiomegaly; K31.89 Other diseases of stomach and duodenum; N28.9 Disorder of kidney and ureter, unspecified; R00.1 Bradycardia, unspecified; I48.91 Unspecified atrial fibrillation; M19.90 Unspecified osteoarthritis, unspecified site; E78.00 Pure hypercholesterolemia, unspecified; I10 Essential (primary) hypertension; E66.9 Obesity, unspecified; Z68.33 Body mass index [BMI] 33.0-33.9, adult; Z79.899 Other long term (current) drug therapy; Z79.82 Long term (current) use of aspirin; Z79.01 Long term (current) use of anticoagulants; Z86.73 Personal history of transient ischemic attack (TIA), and cerebral infarction without residual deficits; Z20.822 Contact with and (suspected) exposure to COVID-19
CPT/HCPCS: 36415; 71275; 74174; 80053; 81001; 83735; 83880; 84484; 85025; 85379; 85610; 86140; 93005; 99285; A9270; J7030; Q9967; U0002

== ENCOUNTER 2024-01-04 15:40 | Emergency (ER) | payer MEDICARE, OTHER ==
[2024-01-04] MEDS ORDERED: Sodium Chloride 0.9% 10 ML Syringe FLUSH PRN (16:14)
[2024-01-04 16:34] LABS: BASOPHILS ABSOLUTE AUTO 0.1 x10-3/uL (0.0-0.3); BASOPHILS PERCENT AUTO 1.1 % (0.3-3.8); EOSINOPHILS ABSOLUTE AUTO 0.1 x10-3/uL (0.0-0.6); EOSINOPHILS PERCENT AUTO 2.1 % (0.1-6.8); HEMATOCRIT 41.6 % (38.3-50.1); LYMPHOCYTES ABSOLUTE AUTO 1.7 x10-3/uL (0.5-4.5); LYMPHOCYTES PERCENT AUTO 30.3 % (15.8-45.3); MEAN CORPUSCULAR HEMOGLOBIN 32.3 pg (27.0-33.3); MEAN CORPUSCULAR HGB CONC 33.6 g/dL (28.7-35.3); MEAN PLATELET VOLUME 7.3 fL (6.7-11.0); MONOCYTES ABSOLUTE AUTO 0.6 x10-3/uL (0.0-1.2); MONOCYTES PERCENT AUTO 10.7 % (5.5-15.2); NEUTROPHILS ABSOLUTE AUTO 3.1 x10-3/uL (1.7-6.9); NEUTROPHILS PERCENT AUTO 55.8 % (40.3-71.8); PLATELET COUNT,PLT 151 x10(3)uL (117-477); RED BLOOD CELL COUNT 4.34 x10(6)uL (3.90-5.90); RED CELL DISTRIBUTION WIDTH 15.3 % (12.4-15.0); WHITE BLOOD CELL COUNT,WBC 5.6 x10-3/uL (3.2-10.1)
[2024-01-04 16:42] LABS: INR 1.02 (1.00-1.24); PROTHROMBIN TIME 10.6 sec (9.0-11.1)
[2024-01-04 16:43] LABS: A/G RATIO 1.1; ALANINE AMINOTRANSFERASE,ALT 24 U/L (12-36); ALBUMIN 3.7 g/dL (3.2-4.6); ALKALINE PHOSPHATASE 55 IU/L (56-112); ASPARTATE AMNIOTRANSFERASE,AST 21 IU/L (5-25); BILIRUBIN TOTAL 0.6 mg/dL (0.1-1.3); BLOOD UREA NITROGEN,BUN 16 mg/dL (7-18); BUN/CREATININE RATIO 13.3 (9-20); CALCIUM 8.9 mg/dL (8.6-10.2); CARBON DIOXIDE,CO2 32 mmol/L (21-32); CHLORIDE,CL 99 mmol/L (100-110); CREATININE 1.2 mg/dL (0.70-1.30); ESTIMATED GFR 60 mL/min (>60); GLUCOSE RANDOM 103 mg/dL (80-116); POTASSIUM,K 4.5 mmol/L (3.5-5.3); SODIUM,NA 134 mmol/L (135-145)
[2024-01-04 16:44] LABS: PTT,PARTIAL THROMBOPLSTIN TIME 29.3 SECONDS (24.4-33.2)
[2024-01-04] MEDS: Sodium Chloride 0.9% 1,000 ML IV SCH (17:12)
[2024-01-04 19:22] LABS: TROPONIN I 12.9 pg/mL (4.0-60.3)
[2024-01-04 19:44] VITALS: BP 155/88; PULSE 61
== END 2024-01-04 19:42 | disposition home or self-care (01) ==
LOC: FB.ED 15:40
DX: R07.9 Chest pain, unspecified (principal); I48.91 Unspecified atrial fibrillation; I10 Essential (primary) hypertension; E78.00 Pure hypercholesterolemia, unspecified
CPT/HCPCS: 36415; 80053; 83880; 84484; 85025; 85610; 85730; 93005; 93010; 99283; 99285; J7030